=== PATIENT | male | born 1980 | race Hispanic/Latino ===

== ENCOUNTER → 2017-05-29 | Emergency (ER) | payer OTHER, SELFPAY ==
[~2017-05-29] MED LIST: Ketorolac Tromethamine 60 MG/2 ML VIAL ONE
--- NOTE | 2017-05-29 07:34 | RAD ---
LEFT RIBS WITH PA CHEST: Date: 05/29/17 The chest film shows a normal sized heart. The mediastinum shows no widening or shift. The trachea i s midline. The lungs are fully inflated and clear. No infiltrate or effusion seen. The bony structur es all appeared intact. No rib fractures were appreciated on the left. There is no pneumothorax. IMPRESSION: No acute thoracic finding. POS: HOME
== END ==
LOC: BURERS 04:53
DX: S20.222A Contusion of left back wall of thorax, initial encounter (principal); F17.210 Nicotine dependence, cigarettes, uncomplicated; V89.2XXA Person injured in unspecified motor-vehicle accident, traffic, initial encounter
CPT/HCPCS: 96372; J1885

== ENCOUNTER 2020-05-29 01:24 | Emergency (ER) | payer OTHER, SELFPAY ==
[2020-05-29] MEDS ORDERED: AMOXicillin 250 MG CAP ONE (01:45)
[2020-05-29] MEDS ORDERED: Adacel (T-DAP) 0.5 ML SYRINGE ONE (01:45)
== END 2020-05-29 01:59 | disposition home or self-care (01) ==
LOC: BURERS 01:24
DX: S81.851A Open bite, right lower leg, initial encounter (principal); I10 Essential (primary) hypertension; E11.9 Type 2 diabetes mellitus without complications; F17.210 Nicotine dependence, cigarettes, uncomplicated; W54.0XXA Bitten by dog, initial encounter
CPT/HCPCS: 90471; 90715